=== PATIENT | female | born 2005 | race Caucasian/White ===

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

== ENCOUNTER 2024-04-17 07:14 | Emergency (ER) | payer BC ==
[2024-04-17] MEDS ORDERED: Sodium Chloride 0.9% 0 ML ONE (07:41)
[2024-04-17] MEDS ORDERED: Sodium Chloride 0.9% 1,000 ML ONE (07:41)
[2024-04-17] MEDS ORDERED: cefTRIAXone (ROCEPHIN) 1 GM VIAL ONE (07:41)
[2024-04-17 08:29] LABS: Band 6 % (5-11); Eosinophils 4 % (0-10); Hematocrit 46.9 % (36.0-47.0); Lymphocytes 15 % (28-48); MDiff Complete? YES; Mean Corpuscular HGB CONC 31.9 g/dL (32.0-36.0); Mean Corpuscular Hemoglobin 28.7 pg (25.0-35.0); Mean Corpuscular Volume 90.1 fl (78.0-98.0); Mean Platelet Volume 5.9 fL (7.4-10.4); Monocytes 5 % (0-4); Neutrophil 68 % (31-61); Platelet Adequacy Comment Appears Increased; Platelet Count 484 10x3/uL (130-400); RBC Distribution Width 11.3 % (11.5-14.5); Red Blood Cell (RBC) Count 5.21 mill/uL (4.00-5.20)
[2024-04-17 08:39] LABS: Troponin I Less than 0.010 ng/mL (< 0.028)
[2024-04-17 08:40] LABS: ALT (SGPT) 50 U/L (8-55); AST (SGOT) 32 U/L (5-30); Albumin 4.4 g/dL (3.5-5.0); Alkaline Phosphatase 83 U/L (40-100); Anion Gap 17 mmol/L (10-20); BUN (Urea Nitrogen) 14 mg/dL (8.4-21.0); Bilirubin, Total 0.6 mg/dL (0.2-1.2); Calc. Creatinine Clearance 0 mL/min (70-130); Calcium 9.5 mg/dL (7.8-10.44); Carbon Dioxide 20 mmol/L (22-29); Chloride 106 mmol/L (98-107); Estimated GFR 126; Globulin 3.3 g/dL (2.4-3.5); Glucose 108 mg/dL (70-105); Potassium 4.3 mmol/L (3.5-5.1); Protein, Total 7.7 g/dL (6.0-8.3); Sodium 139 mmol/L (136-145)
[2024-04-17 10:05] LABS: Bilirubin Negative (Negative); Blood, Urine Negative (Negative); Clarity Slightly Cloudy (Clear); Glucose, Urine (Dipstick) Negative (Negative); Ketone, Urine Trace mg/dL (Negative); Leukocyte Negative (Negative); Nitrite Negative (Negative); Protein, Urine (Dipstick) Negative (Neg-Trace); Specific Gravity, Urine 1.025 (1.005-1.030); pH, Urine 6.5 (5.0-9.0)
[2024-04-17 10:14] LABS: CAUTI Indications for Culture Pregnancy; RBC/HPF 0-3 HPF (0-3); WBC/HPF 0-3 HPF (0-3)
[2024-04-17 10:15] LABS: Bacteria/HPF 1+ HPF (None Seen)
[2024-04-17 10:16] LABS: Urine Culture Reflex Yes Yes
[2024-04-17 10:30] LABS: Pregnancy Test - Urine (BHCG) Negative (Negative); Pregu Control Background? CLEAR/WHITE (CLR/WHITE); Pregu Control Bar Appear? YES (CONTROL BAR); Specific Gravity 1.025 (1.002-1.036)
== END 2024-04-17 10:40 | disposition home or self-care (01) ==
LOC: MADERS 07:14
DX: J18.9 Pneumonia, unspecified organism (principal)
CPT/HCPCS: 36415; 71046; 80053; 81001; 81025; 83605; 83880; 84484; 85025; 87040; 87086; 93005; 96372; J0696; J3490; J7050